=== PATIENT | female | born 1975 | race Caucasian/White ===

== ENCOUNTER 2022-04-21 12:48 | Emergency (ER) | payer OTHER ==
[~2022-04-21] VITALS: Ht 152.4 cm; Wt 84.0 kg
[2022-04-21 13:00] VITALS: BP 121/77
[2022-04-21] MEDS ORDERED: IBUPROFEN 600MG TABLET PO ONE (14:45)
[2022-04-21] MEDS ORDERED: IBUP-2029 MT (16:14)
== END 2022-04-21 16:25 | disposition home or self-care (01) ==
LOC: ER 12:48
DX: M25.532 Pain in left wrist (principal); Z90.49 Acquired absence of other specified parts of digestive tract; Z98.890 Other specified postprocedural states
CPT/HCPCS: 29125; 81025; 99282

== ENCOUNTER 2022-08-06 15:12 | Emergency (ER) | payer MEDICAID, OTHER ==
[~2022-08-06] VITALS: Ht 154.9 cm; Wt 86.0 kg
[~2022-08-06 15:12] MED LIST: IBUP-2029 MT
[2022-08-06 15:25] VITALS: BP 117/72
[2022-08-07] MEDS ORDERED: SULF1TAB48 MT (17:42)
[2022-08-07] MEDS ORDERED: IBUP-2029 PO (17:42)
[2022-08-07] MEDS ORDERED: CEPH500C2 PO (17:42)
== END 2022-08-06 20:25 | disposition left against medical advice (07) ==
LOC: ER 15:12
DX: Z53.21 Procedure and treatment not carried out due to patient leaving prior to being seen by health care provider (principal)

== ENCOUNTER 2022-08-07 16:21 | Emergency (ER) | payer OTHER ==
[~2022-08-07] VITALS: Ht 154.9 cm; Wt 82.0 kg
[2022-08-07 16:32] VITALS: BP 129/72
[2022-08-07] MEDS ORDERED: LIDOCAINE HCL/PF 1% 10 MG/ML 5ML VIAL INFIL ONE (17:30)
[2022-08-07] MEDS ORDERED: BACITRACIN ZINC OINT UDPKT TOP ONE (17:30)
[2022-08-07] MEDS ORDERED: CEFTRIAXONE SODIUM 1 G/VIAL IM ONE (17:30)
[2022-08-07] MEDS ORDERED: IBUPROFEN 600MG TABLET PO ONE (17:30)
[2022-08-07] MEDS ORDERED: TETANUS, DIPHTHERIA, PERTUSSIS VAC/PF 0.5ML (>10YR OLD) IM ONE (17:30)
[2022-08-07] MEDS ORDERED: IBUP-2029 PO (17:42)
[2022-08-07] MEDS ORDERED: CEPH500C2 PO (17:42)
[2022-08-07] MEDS ORDERED: SULF1TAB48 MT (17:42)
== END 2022-08-07 18:11 | disposition home or self-care (01) ==
LOC: ER 16:21
DX: L03.116 Cellulitis of left lower limb (principal); Z23 Encounter for immunization; E11.9 Type 2 diabetes mellitus without complications; Z90.49 Acquired absence of other specified parts of digestive tract
CPT/HCPCS: 90471; 90715; 96372; 99284; J0696; J3490

== ENCOUNTER 2022-08-09 20:34 | Emergency (ER) | payer MEDICAID, OTHER ==
[~2022-08-09] VITALS: Ht 154.9 cm; Wt 96.1 kg
[~2022-08-09 20:34] MED LIST changes: +CEPH500C2 PO; +IBUP-2029 PO; +SULF1TAB48 MT
[2022-08-09 20:53] VITALS: BP 141/66
[2022-08-09] MEDS ORDERED: T3 PO (20:55)
[2022-08-09] MEDS ORDERED: KETOROLAC 60MG/2ML VIAL IM ONE (21:00)
== END 2022-08-09 21:15 | disposition home or self-care (01) ==
LOC: ER 20:34
DX: L03.317 Cellulitis of buttock (principal); E11.9 Type 2 diabetes mellitus without complications; Z98.890 Other specified postprocedural states
CPT/HCPCS: 96372; 99283; J1885

== ENCOUNTER 2023-02-14 17:12 | Emergency (ER) | payer MEDICAID ==
[~2023-02-14] VITALS: Ht 152.4 cm; Wt 87.0 kg
[~2023-02-14 17:12] MED LIST changes: +T3 PO
[2023-02-14 17:21] VITALS: TEMP 98.4; O2SAT 100
[2023-02-14] MEDS ORDERED: IBUPROFEN 400MG TABLET PO ONE (18:45)
[2023-02-14] MEDS ORDERED: IBUP-2028 MT (20:23)
[2023-02-14 20:24] VITALS: BP 115/74; PULSE 101; RESP 16
== END 2023-02-14 20:32 | disposition home or self-care (01) ==
LOC: ER 17:12
DX: S83.92XA Sprain of unspecified site of left knee, initial encounter (principal); E11.9 Type 2 diabetes mellitus without complications; X58.XXXA Exposure to other specified factors, initial encounter; Y93.89 Activity, other specified; Y92.89 Other specified places as the place of occurrence of the external cause; Y99.8 Other external cause status
CPT/HCPCS: 73560; 99283

== ENCOUNTER 2023-12-22 11:44 | Emergency (ER) | payer MEDICAID ==
[~2023-12-22] VITALS: Ht 154.9 cm; Wt 92.0 kg
[~2023-12-22 11:44] MED LIST changes: +IBUP-2028 MT
[2023-12-22 11:55] VITALS: TEMP 98.2; O2SAT 98
[2023-12-22 12:51] VITALS: BP 137/89; PULSE 87; RESP 16
[2023-12-22] MEDS: KETOROLAC 30MG/ML VIAL IM ONE (12:51)
[2023-12-22] MEDS ORDERED: GABA-529 MT (15:12)
[2023-12-22] MEDS ORDERED: IBUP-2030 MT (15:12)
== END 2023-12-22 16:01 | disposition home or self-care (01) ==
LOC: ER 11:44
DX: M25.512 Pain in left shoulder (principal); E11.9 Type 2 diabetes mellitus without complications
CPT/HCPCS: 73030; 96372; 99283; J1885; Z7610; A4565